=== PATIENT | male | born 1985 | race Caucasian/White ===

== ENCOUNTER 2018-11-11 09:30 | Outpatient (CLI) | payer OTHER, SELFPAY ==
--- NOTE | 2018-11-11 09:15 | DI.RAD_ITS ---
SYMPTOMS/DIAGNOSIS: LT FOOT PAIN, M79.672, PAIN LOCATED BASE OF 3RD TO 4TH TOES, ? OLD FX, DISLOCATION OR OTHER LEFT FOOT: There is no evidence of a fracture or dislocation. Degenerative changes are identified at the level of the first and second cuneiform metatarsal joints. Also incidental note is made of a small calcaneal spur and tiny area of spurring at the insertion of the Achilles aponeurosis on the calcaneus.
== END 2018-11-11 09:50 ==
PROVIDERS: PCP Nurse Practitioner Family; Visit Provider Nurse Practitioner Family
DX: M79.672 Pain in left foot (principal); M19.072 Primary osteoarthritis, left ankle and foot; M77.32 Calcaneal spur, left foot
CPT/HCPCS: 73630

== ENCOUNTER 2019-06-14 08:58 | Outpatient (CLI) | payer OTHER, SELFPAY ==
[2019-06-14 10:30] LABS: ALT 43 U/L (12-78); AST 25 U/L (15-37); Albumin 4.1 g/dL (3.4-5.0); Alkaline Phosphatase 78 U/L (46-116); Anion Gap 9.1 mmol/L (3-11); BUN 18 mg/dL (7-18); Bilirubin, Total 0.4 mg/dL (0.2-1.0); CO2 28.9 mmol/L (21.0-32.0); CREATININE 1.03 mg/dL (0.70-1.30); Calcium 9.4 mg/dL (8.5-10.1); Calculated LDL 152 mg/dL; Chloride 103 mmol/L (98-107); Cholesterol 221 mg/dL (50-200); Glucose 106 mg/dL (70-100); HDL Cholesterol 46 mg/dL (40-60); Sodium 141 mmol/L (136-145); Total Protein 7.4 g/dL (6.4-8.2); Triglyceride 118 mg/dL (30-150)
== END 2019-06-14 09:18 ==
PROVIDERS: PCP Nurse Practitioner Family; Visit Provider Nurse Practitioner Family
DX: Z13.220 Encounter for screening for lipoid disorders (principal); Z13.1 Encounter for screening for diabetes mellitus
CPT/HCPCS: 36415; 80053; 80061; 83721

== ENCOUNTER 2023-03-20 08:17 | Emergency (ER) | payer BC, SELFPAY ==
--- NOTE | 2023-03-20 08:26 | W.ED.GENAD ---
Discharge Plan Discharge Details Chief Complaint: FlankPain Clinical Impression: Hematuria, Ureterolithiasis Primary Care Provider: Cherise Giang ED Provider: Kirt Bell Home Meds and New Rx's Prescriptions: New tamsulosin 0.4 mg capsule 0.4 mg PO QHS Qty: 14 0RF Rx Instructions: Please take this every evening until you have passed your stone. ondansetron 4 mg tablet,disintegrating 4 mg PO BID 5 Days Qty: 10 0RF oxycodone 5 mg tablet 5 mg PO Q8H PRNQty: 3 0RF Discharge Instructions Instructions: Hematuria (ED) Additional Instructions: You were seen in the emergency department for your kidney stone which measures 6 mm. Your urine shows no sign of infection. Your kidney stone is located just below your right kidney. In 60% of patients this will pass in 1 to 2 weeks. If you develop fevers, worsening pain, or nausea and vomiting that does not stop please return to the emergency department. For your pain please take medications as follows: 1. Take acetaminophen (Tylenol), 1,000 mg (two 500 mg tabs) every 6 hours 2. Take ibuprofen (Advil), 400 mg every 6 hours. If you have additional pain after taking the above medications you are receiving several tablets of an opiate medication which you should take as directed. Please do not drive or drink alcohol after taking these tablets. You are also receiving a prescription for a medication which will help you pass your stone. Medical Decision Making This is an overall very well-appearing normothermic and not tachycardic 38 male with intermittent right flank pain and hematuria concerning for ureterolithiasis given recent hematuria and family history. No dysuria nor frequency to suggest UTI. No vascular risk factors nor pulsatile mass to suggest ruptured AAA. No midline back pain to suggest metastatic disease. No abdominal tenderness to suggest intra-abdominal infection. No right lower quadrant tenderness to suggest appendicitis. No pain out of proportion to suggest necrotizing soft tissue infection. No rash to right flank to suggest zoster. No perineal nor scrotal pain to suggest foreign years gangrene and patient does not have diabetes. Given no personal history of ureterolithiasis in the past we will obtain dry CT scan of the patient's abdomen pelvis to assess for stone and determine size and location. Will obtain urinalysis to assess for UTI and basic labs to assess renal function. I also considered acute cholecystitis however the patient had no right upper quadrant tenderness nor any fevers nor any diarrhea so I felt that this was less likely. I considered right lower lobe pneumonia however the patient has not had a fever nor cough. I considered PE however the patient is PERC negative so I did not send a D-dimer. Anticipate discharge. 9:40 AM CBC with no anemia or thrombocytopenia noted leukocytosis. Patient has a right-sided UPJ stone measuring 6 mm with mild hydro-. Will provide expulsive therapy with tamsulosin. No signs of UTI but urinalysis shows hematuria. We will touch base with urology for outpatient expectant management. Will ensure renal function is normal. 9:40 AM Patient metabolic panel with no JULIA and no acute electrolyte abnormalities. 9:58 AM I have prescribed the patient's oxycodone in addition to acetaminophen and ibuprofen for analgesia. I reviewed the [facility] record and the patient had no opiate prescriptions. 2-1/2 years ago he had a prescription for diazepam. Patient was provided with a strainer in the emergency department. I advised ED return if patient develops intractable pain, fevers, nausea or vomiting, or was not able to tolerate p.o. He understood his return indications and will proceed with an empiric trial of expectant outpatient management. 10:12 AM I spoke with Dr. Zaman from urology who agreed to see the patient in follow-up next week. Chronic conditions affecting the care of the patient: Elevated BMI History obtained from an outside historian: N/A External record review: N/A Medications: N/A Social determinants of health affecting disposition: N/A Management discussed with: Dr. Zaman from urology Treatment/interventions considered: N/A Response to therapies provided: N/A HPI General Date/Time Provider Initiated Documentation: 03/20/23 08:25. HPI Narrative: This is a 38-year-old male with a history of obesity arriving to the emergency department via private vehicle in the setting of flank pain. Patient, for the past 2 days, has intermittently had dark urine. He endorses pain below his right ribs that radiates to his back and groin. He says that yesterday his urine was pinkish. He went to [facility] in [place] and was diagnosed with hematuria and scheduled for an outpatient CTA to assess for ureterolithiasis. He has had more discomfort and has not yet had a CT. He has never had ureterolithiasis however his family history is significant for ureterolithiasis in his father and grandfather. He has had no dysuria no abdominal pain no nausea vomiting fevers nor chills. He has not taken any falls. 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 He has never had a PE nor DVT. He denies hormone use and calf pain. Related Data Home Medications Medication Instructions Recorded Confirmed ondansetron 4 mg disintegrating 4 mg PO BID 5 days #10 tabs 03/20/23 tablet oxycodone 5 mg tablet 5 mg PO Q8H PRN #3 tabs 03/20/23 tamsulosin 0.4 mg capsule 0.4 mg PO QHS #14 caps 03/20/23 Previous Rx's Medication Instructions Recorded ondansetron 4 mg disintegrating 4 mg PO BID 5 days #10 tabs 03/20/23 tablet oxycodone 5 mg tablet 5 mg PO Q8H PRN #3 tabs 03/20/23 tamsulosin 0.4 mg capsule 0.4 mg PO QHS #14 caps 03/20/23 Allergies Allergy/AdvReac Type Severity Reaction Status Date / Time No Known Allergies Allergy Verified 03/20/23 08:43 PFSH All Active Problems (Updated 03/20/23 @ 09:31 by Kirt Bell MD) Hematuria (Acute) Ureterolithiasis (Acute) Hyperlipidemia, unspecified (Acute) IFG (impaired fasting glucose) (Acute) Obesity (BMI 30-39.9) (Chronic) 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 Substance abuse Social History Smoking/Tobacco Use Status: Former Tobacco Use Quit Date: 01/22/19 Tobacco: How many years used: 12 Smokeless tobacco user: chewing tobacco (1.5yrs - quit date established. 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[employer]) Pets and animals: Yes Pets and animals: cat(s), dog(s) and farm animals Sexually active: Yes Do you think of yourself as: straight/heterosexual Current gender identity: male What is your relationship status?: How often do you talk on the phone with friends or family?: three or more times per week How often do you get together with friends or relatives?: once per week How often do you attend shinto or zoroastrianism services?: 4 or more times per year Do you belong to any clubs or organized social groups?: no Panel score (0-1 are the most socially isolated patients): 3 What type of physical activity do you participate in: walking and other Details: Hiking Duration: 30-45 minutes/day Frequency: 3-4 times per week Jennifer/Adventist: Scientology Special jennifer needs: No Seatbelt use: sometimes Helmet use: No Drive intox or ride w/intox tour driver: No Water heater temp set <120 deg: Yes Working smoke detector in home: Yes Fire extinguisher in home: Yes Carbon monox detector in home: Yes Firearms in home: Yes Firearms unloaded and locked: Yes Do you feel safe at home: Yes Do you feel safe in your relationship?: Yes Exam Narrative Exam Narrative: General: Well-appearing in no acute distress speaking in complete sentences. Head: Normocephalic, atraumatic. Eye: Pupils equal, round reactive to light. Extraocular eye movements intact. No conjunctival injection. No scleral icterus. Ear, nose, mouth, throat: Grossly normal inspection. Normal voice, handling secretions normally. Neck: Trachea midline. Cardiovascular: Well-perfused distal extremities. Regular rate and rhythm Respiratory: Nonlabored respiration. Clear lungs bilaterally Gastrointestinal: Nondistended abdomen. Soft nontender. No pulsatile masses. No rash to abdomen. No CVA tenderness. Musculoskeletal: No edema. Moving all 4 extremities spontaneously. Skin: Normal for age and race, grossly normal temperature and turgor. No acute rash. Neurologic: Alert and appropriate, no apparent acute deficits. Psychiatric: Mood and manner are appropriate. Grooming and personal hygiene are appropriate.
[2023-03-20 08:28] VITALS: BP 128/80; PULSE 85; RESP 20; TEMP 36.8; O2SAT 98
--- NOTE | 2023-03-20 08:45 | DI.CT_ITS ---
Exam(s) CT RENAL COLIC WO EXAM: CT RENAL COLIC WO CLINICAL HISTORY: Right-sided flank pain. TECHNIQUE: Imaging Protocol: Axial computed tomography images with coronal and sagittal reformatted images were created and reviewed. COMPARISON: No exams were available for comparison FINDINGS: ABDOMEN: Lung Bases: Normal where visualized. Liver: There is fatty infiltration of the liver. The liver measures 18.5 cm long. No measurable mas s. Gallbladder and biliary tract: No radiodense calculus or biliary ductal dilation. Pancreas: Normal density, no abnormal calcifications or inflammatory process. Spleen: Normal. Kidneys: Normal size, contour and axis.There is a 6 mm stone at the right UPJ causing mild hydronephr osis. Bilateral nephrolithiasis is seen. There is no evidence of left ureterolithiasis or hydroneph rosis. There is a 1.5 cm exophytic hypodense nodule the superior pole of the left kidney. It is christin ogeneous with the Hounsfield units of 10. No follow-up is recommended. Adrenal glands: No mass is seen. Lymph nodes: Within normal limits. Abdominal Aorta: Abdominal portion non-dilated. Mild atherosclerosis. PELVIS: Bladder:Symmetric distention, no gross wall thickening. Bowel: There is diverticulosis of the colon, but no evidence of acute diverticulitis. There is no ev idence of bowel obstruction or bowel wall thickening. There is no evidence of an acute appendicitis. Peritoneal cavity: No ascites, collection or mesenteric inflammatory response. No free air. Reproductive organs: Unremarkable as visualized. Bones: Within normal limits. There is L5 spondylolysis and grade 1 spondylolisthesis of L5 on S1. Soft Tissues: Within normal limits. IMPRESSION: 1. 6 mm right UPJ stone with very mild hydronephrosis. 2. Findings were discussed with Dr. Bell at 9:28 a.m. on 03/20/2023. RADIATION DOSE DELIVERED: 1,218.73mGy.cm Total DLP DATA REPOSITORY: All CT scans at this facility are submitted to the National Radiology Data Registry (NRDR) Dose Index Registry (DIR) with the [employer] (ACR). RADIATION OPTIMIZATION: All CT scans at this facility use at least one of these dose optimization te chniques: automated exposure control; mA and/or kV adjustment per patient size (includes targeted exa ms where dose is matched to clinical indication); or iterative reconstruction.
[2023-03-20 09:09] LABS: Bilirubin Negative (Negative); Blood Large (Negative); Clarity Clear (Clear); Glucose Negative (Negative); Ketones Negative (Negative); Leukocyte Esterase Negative (Negative); Nitrite Negative (Negative); Urobilinogen 0.2 mg/dL (Up to 0.2)
[2023-03-20 09:16] LABS: WBC 0-2 HPF (0-5)
[2023-03-20 09:17] LABS: Bacteria Negative HPF (Negative); C & S Indicated? No; Casts Negative LPF (Negative); Crystals Negative HPF (Negative); Epithelial Cells Negative HPF (Negative); Mucus Negative (Negative)
[2023-03-20 09:29] LABS: Absolute Basophil Count 0.05 10^3/uL (0.0-0.2); Absolute Eosinophil Count 0.08 10^3/uL (0.0-0.7); Absolute Lymphocyte Count 1.26 10^3/uL (1.2-3.4); Absolute Monocyte Count 0.47 10^3/uL (0.1-0.8); Absolute Neutrophil Count 2.67 10^3/uL (1.2-6.7); Basophils % 1.1; Eosinophils % 1.8; HGB 15.4 g/dL (13.5-17.5); Lymphocytes % 27.8; MCH 29.2 pg (27.0-33.0); MCHC 33.5 % (32.0-36.0); MCV 87 fL (80-95); MPV 9.8 fL (8.0-11.0); Monocytes % 10.4; Neutrophils % 58.9; Platelet Count 238 10^3/uL (130-400); RBC 5.28 10^6/uL (4.36-5.78); RDW 11.7 % (11.8-14.1); RDW-SD 37.7 fL; WBC 4.53 10^3/uL (4.4-10.8)
[2023-03-20 09:38] LABS: Anion Gap 3.8 mmol/L (3-11); BUN 13 mg/dL (7-18); CO2 30.2 mmol/L (21.0-32.0); Calcium 9.6 mg/dL (8.5-10.1); Chloride 104 mmol/L (98-107); Estimated GFR 98.18 (mL/min/1.73m2); Glucose 97 mg/dL (74-106); Potassium 4.6 mmol/L (3.5-5.1); Sodium 138 mmol/L (136-145)
--- NOTE | 2023-03-20 10:14 | NUR.NOTE ---
Nursing Note: Referral faxed to [facility] Urology for kidney stone, 6mm UPJ,in [address] Zaman about pt.
== END 2023-03-20 10:07 ==
PROVIDERS: Emergency Provider Emergency Medicine; PCP Nurse Practitioner Family
DX: N13.2 Hydronephrosis with renal and ureteral calculous obstruction (principal); D72.829 Elevated white blood cell count, unspecified
CPT/HCPCS: 36415; 80048; 99284; 74176; 81003; 81015; 85025

== ENCOUNTER 2023-04-14 15:41 | Outpatient (CLI) | payer BC, SELFPAY ==
--- NOTE | 2023-04-14 15:15 | DI.RAD_ITS ---
Exam(s) XR ABDOMEN FLAT PLATE EXAM: 2D digital imaging was performed. CLINICAL HISTORY: Ureterolithiasis, N20.1, monitor. COMPARISON: CT CT RENAL COLIC WO from 03/20/2023 TECHNIQUE: Supine views of the abdomen was performed. Two images were obtained. FINDINGS: LUNG BASES: Clear. BOWEL GAS PATTERN: Nondistended. FREE AIR: None. CALCIFICATIONS: There is a 4 mm linear calcification lateral to the right L2 transverse process. Its location suggests the right UPJ. It a appears to be in the same position compared to the CT scan of the abdomen and pelvis from 03/20/2023. No other urinary tract calculi are identified. The small kn own renal calcification are not visualized on this examination. OSSEOUS STRUCTURES: Normal for age. OTHER FINDINGS: None. IMPRESSION: 4 mm stone which appears unchanged in location and likely lies at the right UPJ. DATA REPOSITORY: RADIATION DOSE DELIVERED:
== END 2023-04-14 16:01 ==
LOC: DI 15:44
PROVIDERS: PCP Nurse Practitioner Family; Visit Provider Urology
DX: N20.1 Calculus of ureter (principal)
CPT/HCPCS: 74018

== ENCOUNTER 2023-04-24 08:54 | Day surgery (SDC) | payer BC, SELFPAY ==
[2023-04-24 09:09] VITALS: BP 125/75; PULSE 56; RESP 16; TEMP 36.5; O2SAT 99
--- NOTE | 2023-04-24 09:30 | DI.RAD_ITS ---
Exam(s) XR RETROGRADE IN OR EXAM: XR RETROGRADE IN OR CLINICAL HISTORY: Right Ureterolithiasis. TECHNIQUE: 2D digital imaging was performed. COMPARISON: No exams were available for comparison FINDINGS: Fluoroscopy was provided during right urologic procedure performed by the urologist. Please refer to procedure report for details. Radiation exposure index/cumulative dose: jayashree Kowalski= 4.01mGy IMPRESSION: As above. DATA REPOSITORY: RADIATION DOSE DELIVERED:
[2023-04-24] MEDS: Lactated Ringers 1,000 ML 80 ML IV (09:31)
--- NOTE | 2023-04-24 10:16 | W.PM.HP.N ---
Date of service: 04/24/23 Time of Service: 10:16 Assessment and Plan Assessment and plan (1) Calculus of proximal right ureter: Status: Acute Assessment and plan: His stone has not progressed with conservative management, so we will move forward with flexible ureteroscopy and holmium laser lithotripsy of the stone. History of Present Illness History of Present Illness Chief Complaint: Right ureteral stone Narrative: This is a 38-year-old gentleman who was previously seen in our clinic for vasectomy.? He comes in now after being in the emergency department about 3 weeks ago with a right ureteral stone. At the time of his presentation, he had gross hematuria and back pain.? He had no nausea or vomiting.? He had no fever or chills. He was evaluated with a noncontrast CT scan and a proximal right ureteral stone was identified.? He was treated conservatively. He has had intermittent episodes of back pain, right scrotal pain and hematuria.? His pain tends to be controlled with anti-inflammatory medications.? He continues to take tamsulosin. When he presented to the office recently, his followup KUB showed no progression of his stone Review of Systems Narrative: No fevers or chills No vision change or dysphasia No diabetes or thyroid No shortness of breath, cough or hemoptysis No chest pain or palpitations No nausea, vomiting, hepatitis, ulcers, jaundice, diarrhea or constipation No seizures, strokes or peripheral neuropathy No bleeding disorders or anemia No gout PFSH All Active Problems (Updated 04/24/23 @ 10:19 by Price Zaman MD) Calculus of proximal right ureter (Acute) Hyperlipidemia, unspecified (Acute) IFG (impaired fasting glucose) (Acute) Obesity (BMI 30-39.9) (Chronic) 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 Substance abuse Social History Smoking/Tobacco Use Status: Former Tobacco Use Quit Date: 01/22/19 Tobacco: How many years used: 12 Smokeless tobacco user: chewing tobacco (1.5yrs - quit date established. 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[employer]) Pets and animals: Yes Pets and animals: cat(s), dog(s) and farm animals Sexually active: Yes Do you think of yourself as: straight/heterosexual Current gender identity: male What is your relationship status?: How often do you talk on the phone with friends or family?: three or more times per week How often do you get together with friends or relatives?: once per week How often do you attend christian or taoism services?: 4 or more times per year Do you belong to any clubs or organized social groups?: no Panel score (0-1 are the most socially isolated patients): 3 What type of physical activity do you participate in: walking and other Details: Hiking Duration: 30-45 minutes/day Frequency: 3-4 times per week Jennifer/Christian: Caodaism Special jennifer needs: No Seatbelt use: sometimes Helmet use: No Drive intox or ride w/intox compactor driver: No Water heater temp set <120 deg: Yes Working smoke detector in home: Yes Fire extinguisher in home: Yes Carbon monox detector in home: Yes Firearms in home: Yes Firearms unloaded and locked: Yes Do you feel safe at home: Yes Do you feel safe in your relationship?: Yes Meds Allergies and Home Medications Allergies Allergy/AdvReac Type Severity Reaction Status Date / Time No Known Allergies Allergy Verified 04/24/23 09:08 Home Medications Medication Instructions Recorded Confirmed Type tamsulosin 0.4 mg capsule 0.4 mg PO QHS #14 caps 04/08/23 04/24/23 Rx Exam Const General: cooperative Neck Neck: supple Resp Effort & Inspection: normal respiratory effort Auscultation: clear to auscultation bilaterally Cardio Rate: regular rate Rhythm: regular rhythm GI Palpation: soft and no masses Neuro General: patient alert, patient awake and patient oriented x3 Results Last Vital Signs Temp 36.5 C 04/24/23 09:09 Pulse 56 L 04/24/23 09:09 Resp 16 04/24/23 09:09 BP 125/75 04/24/23 09:09 Pulse Ox 99 04/24/23 09:09 Time Spent Time spent with Patient: <40 minutes Time was spent: other
--- NOTE | 2023-04-24 11:02 | W.ANESPRE ---
General Info Date of Service Date Performed: 04/24/23 Height: 5 ft 9 in Weight: 110 kg Body Mass Index (BMI): 35.8 Surgical Procedure: Operation Date: 04/24/23 10:25 Proposed Procedure Side Surgeon p Cystoscopy/Laser/Retrograde/Ureteroscopy/Possible Stent Placement Right Price Zaman MD Meds Allergies and Home Medications Allergies Allergy/AdvReac Type Severity Reaction Status Date / Time No Known Allergies Allergy Verified 04/24/23 09:08 Home Medication Medication Instructions Recorded tamsulosin 0.4 mg capsule 0.4 mg PO QHS #14 caps 04/08/23 Current Visit Medications: Current Medications Generic Name Dose Route Start Last Admin Trade Name Freq PRN Reason Stop Dose Admin Ringer's Solution 1,000 mls @ 80 mls/hr 04/24/23 06:00 04/24/23 09:31 IV 05/23/23 23:59 80 mls/hr INFUSION JIMMIE Administration Cefazolin Sodium/Dextrose 2 gm in 50 mls @ 100 mls/hr 04/24/23 06:00 Ancef Duplex IVPB 05/23/23 23:59 PREOP JIMMIE IV Miscellaneous Supplies 1 each 04/24/23 06:00 Iv Access IV 05/23/23 23:59 DIRECTED JIMMIE Sodium Chloride 0 ml 04/24/23 06:00 Normal Saline Flush 10 Ml Syr IV 05/23/23 23:59 PRN PRN Sodium Chloride 0 ml 04/24/23 06:00 Normal Saline 10 Ml Vial IJ 05/23/23 23:59 DIRECTED PRN Sterile Water 0 ml 04/24/23 06:00 Water,Injection,Sterile 10 Ml Vial IJ 05/23/23 23:59 DIRECTED PRN PFSH Active Problems Active Problems: Problem Status Onset Code Calculus of proximal right ureter N20.1 Hyperlipidemia, unspecified E78.5 IFG (impaired fasting glucose) R73.01 Obesity (BMI 30-39.9) E66.9 Neuroma of third interspace of left foot G57.62 Sleep apnea, unspecified G47.30 Vitamin D deficiency 12/17/16 E55.9 Medical History Medical History (Updated 04/24/23 @ 10:19 by Price Zaman MD) Tobacco use disorder Chewing tobacco; QUIT 01/2019 Surgical History Surgical History Status post appendectomy (~1999) Tonsillectomy and adenoidectomy Age 10 Tobacco Smoking/Tobacco Use Status: Former Tobacco Use Smokeless tobacco user: chewing tobacco (1.5yrs - quit date established. 07/14/20 EO ) Passive smoking exposure: No Second hand exposure: No Alcohol Alcohol Intake: current Alcohol intake frequency: a few times a week Substance Use Substance use: Never Substance use type: does not use Vital Signs and Lab Results Vital Signs Most Recent Vital Signs in EMR: Most Recent Vital Signs Temp Pulse Resp BP Pulse Ox 36.5 C 56 L 16 125/75 99 04/24/23 09:09 04/24/23 09:09 04/24/23 09:09 04/24/23 09:09 04/24/23 09:09 Lab Results Blood Type / Crossmatch: No Data to Display Complete Blood Count: No Data to Display Complete Metabolic Panel: No Data to Display Liver Function Panel: No Data to Display Coagulation Panel: No Data to Display Cardiac Panel: No Data to Display Arterial Blood Gas: No Data to Display Venous Blood Gas: No Data to Display Pancreas Panel: No Data to Display Thyroid Panel: No Data to Display Infectious Disease: No Data to Display Blood Cultures: No Data to Display Toxicology Panel: No Data to Display Anesthesia Assessment and Plan Anesthesia History Personal History: No History of Anesthesia Complications Family History: No Family History of Anesthesia Complications Exercise Tolerance Exercise Tolerance: Metabolic Equivalents>4 Pertinent Negatives Pertinent Negatives: No Symptoms of GERD Cardiac & Pulmonary Exam Cardiac Exam: Normal S1/S2 Heart Sounds Pulmonary Exam: Clear Bilateral Breath Sounds Implantable Cardiac Device Does patient have a Pacemaker or an ICD?: No Airway Exam Known Difficult Airway: No Mallampati Class: 2 Mouth Opening: Normal (> 3cm) Thyromental Distance: Greater than 3 cm Neck Range of Motion: Full ROM Neck Circumference: Normal Teeth Condition: Normal Dentition ASA Classification ASA Score: ASA 2 Emergency Case?: No NPO Status NPO Status: NPO Clears >2 hours, Solids >8 hours Anesthesia Plan Resuscitation Status: Full Code Anesthesia Technique: General Anesthesia Airway Planned: Endotracheal Tube Monitors Used: Standard Monitors
[2023-04-24 11:03] VITALS: BMI 35.8
[2023-04-24] MEDS: ceFAZolin 2 GM/50 ML BAG IVPB (11:15)
[2023-04-24] MEDS: Lidocaine 2% Jelly 6 ML SYR (11:33)
[2023-04-24] MEDS: Omnipaque 300 MG/ML 50 ML BTL (11:40)
--- NOTE | 2023-04-24 12:02 | W.PM.DSUDISC ---
Date of service: 04/24/23 Time of Service: 12:03 Discharge Plan Disposition Patient Disposition: Home Condition: Stable Discharge Details Reason For Visit: ureteroscopy Attending Provider: Price Zaman Primary Care Provider: Cherise Giang Home Meds and New Rx's Prescriptions: New tramadol 50 mg tablet 50 mg PO Q8H MDD 3 PRNQty: 12 0RF No Action tamsulosin 0.4 mg capsule 0.4 mg PO QHS Qty: 14 0RF Rx Instructions: Please take this every evening until you have passed your stone. Discharge Instructions Additional Instructions: no need to strain urine may use tylenol and NSAIDs for pain - use tramadol for breakthrough pain followup @ 6 weeks with renal US Activity:: Activity as Tolerated Shower/Bathe:: 24 hours Diet:: As Tolerated Discharge Orders Discharge Orders: Discharge Order (Routine); Ordered 04/24/23 Ordered By: Price Zaman DS: Diagnosis Discharge Diagnosis (1) Calculus of proximal right ureter: Status: Acute
--- NOTE | 2023-04-24 12:09 | W.PM.OP ---
Date of service: 04/24/23 Time of Service: 12:10 Operative Note Operative Note DATE OF PROCEDURE: 04/24/23 PRE-OP DIAGNOSIS: Right ureteral stone POST-OP DIAGNOSIS: same PROCEDURE: Cystoscopy, right retrograde pyelogram, right flexible ureteroscopy with holmium laser lithotripsy of stone, extraction of stone fragments SURGEON: Price Zaman ANESTHESIA TYPE: General LMA/ETT Refer to Anesthesia Record ESTIMATED BLOOD LOSS: 10 PATHOLOGY: other (Stones for chemical analysis) COMPLICATIONS: None Patient was transported to: PACU Patient's condition: stable Indications: This is a 38-year-old gentleman who presented to the emergency department with right flank and testicular pain. He was found to have a right proximal ureteral stone. He was treated conservatively but his stone did not progress. He presents now for stone manipulation Findings: Right proximal ureteral stone bumped back into right upper pole calyx Procedure Description: The patient was given preoperative IV antibiotics and brought to the operating room on 04/24/2023. After successful induction of general anesthesia, he was placed in the dorsal lithotomy position. His genitalia was prepped and draped sterilely. 2% Xylocaine jelly was instilled into the urethra to act as a local anesthetic. A 22 [place] rigid cystoscope was passed through the urethra into the bladder. The urethra and bladder were inspected with a 30 degree lens. The pendulous, bulbar and membranous urethra's appeared normal with no strictures. The prostatic urethra showed no significant lateral lobe enlargement or median lobe enlargement. The bladder neck was entered and the bladder mucosa was inspected. No stone was seen within the lumen of the bladder. Both ureteral orifices appeared normal with no blood coming from either side. The right ureteral orifice was cannulated with a 5 [place] access catheter and a retrograde pyelogram was obtained by injecting Omnipaque through the access catheter under fluoroscopic guidance. A filling defect was identified in the right proximal ureter. We then passed a guidewire up through the lumen of the access catheter and removed the catheter. We positioned the dual-lumen catheter and placed a second guidewire. We chose one of the wires as a working wire and the second as a safety wire. A ureteral access sheath was then advanced over the working wire leaving the safety wire in place. The flexible ureteroscope was advanced through the lumen of the access sheath. The ureter was inspected. No stones were seen along the course of the ureter, but the previously identified stone was seen in one of the upper pole calyces along with the tip of the guidewire. The stone was then treated with a holmium laser fiber. We chose a 272 ?m fiber and used a power setting of 0.5 and a rate of 20. The stone fragmented quite nicely and I was then able to grasp stone fragments using a 0 tip stone basket. The stone fragments were removed and sent to pathology for chemical analysis. The scope was reintroduced and no additional large stone burden was seen. We elected not to place a ureteral stent at this time. The scope was removed. He tolerated this procedure with no complications.
[2023-04-24 12:17] VITALS: BP 126/79; PULSE 74; RESP 12; TEMP 36.5; O2SAT 100
[2023-04-24 12:22] VITALS: BP 119/84; PULSE 66; RESP 13; TEMP 36.5; O2SAT 100
--- NOTE | 2023-04-24 12:26 | W.ANESPOSTOP ---
Postoperative Evaluation Date, Time and Location Date Performed: 04/24/23 Time Performed: 12:26 Patient Location: PACU Vital Signs Most Recent Imported Vital Signs: Most Recent Vital Signs Temp Pulse Resp BP Pulse Ox 36.5 C 56 L 16 125/75 99 04/24/23 09:09 04/24/23 09:09 04/24/23 09:09 04/24/23 09:09 04/24/23 09:09 Pain Score Most Recent Pain Score: Most Recent Pain Score Pain Level 0 04/24/23 09:09 Assessment Mental Status: Awake (Alert & Oriented to Patient Baseline) Airway and Respiratory Function: Patent airway with normal (patient baseline) respiratory exam Cardiovascular Function: Hemodynamically Stable Hydration Status: Adequately Hydrated Nausea & Vomiting: No Nausea or Vomiting Pain: Pt. Denies Any Pain Peripheral Nerve Block: Patient did not receive a nerve block
[2023-04-24 12:27] VITALS: BP 121/84; PULSE 63; RESP 13; TEMP 36.5; O2SAT 100
[2023-04-24 12:45] VITALS: BP 124/89; PULSE 53; RESP 16; TEMP 36.4; O2SAT 96
[2023-04-24 13:15] VITALS: BP 130/95; PULSE 56; RESP 18; TEMP 36.5; O2SAT 97
--- NOTE | 2023-04-24 14:51 | W.ANESPOSTOP ---
Postoperative Evaluation Date, Time and Location Date Performed: 04/24/23 Time Performed: 14:51 Patient Location: PACU Vital Signs Most Recent Imported Vital Signs: Most Recent Vital Signs Temp Pulse Resp BP Pulse Ox 36.5 C 56 L 18 130/95 H 97 04/24/23 13:15 04/24/23 13:15 04/24/23 13:15 04/24/23 13:15 04/24/23 13:15 Most Recent Vital Signs Temp Pulse Resp BP Pulse Ox 36.5 C 56 L 16 125/75 99 04/24/23 09:09 04/24/23 09:09 04/24/23 09:09 04/24/23 09:09 04/24/23 09:09 Pain Score Most Recent Pain Score: Most Recent Pain Score Pain Level 2 04/24/23 13:15 Assessment Mental Status: Awake (Alert & Oriented to Patient Baseline) Airway and Respiratory Function: Patent airway with normal (patient baseline) respiratory exam Cardiovascular Function: Hemodynamically Stable Hydration Status: Adequately Hydrated Nausea & Vomiting: No Nausea or Vomiting Pain: Pt. Denies Any Pain Peripheral Nerve Block: Patient did not receive a nerve block
[2023-04-30 10:49] LABS: Source: Right Ureter
== END 2023-04-24 13:25 | disposition home or self-care (01) ==
PROVIDERS: PCP Nurse Practitioner Family; Visit Provider Urology
PROC: (CPT 52353; principal; 2023-04-24 10:15)
DX: N20.1 Calculus of ureter (principal); E55.9 Vitamin D deficiency, unspecified; E66.9 Obesity, unspecified; E78.5 Hyperlipidemia, unspecified
CPT/HCPCS: 52353; 74420; 82365; J0690; J1100; J1885; J2250; J2405; J2704; J3010; Q9967

== ENCOUNTER 2024-10-26 15:26 | Outpatient (CLI) | payer OTHER, SELFPAY ==
[2024-10-26 15:09] LABS: Hemoglobin A1C 5.6 % (<5.7)
[2024-10-26 15:26] LABS: Glucose 80 mg/dL (74-106)
[2024-10-26 15:31] LABS: Calculated LDL 135 mg/dL (<100); Cholesterol 200 mg/dL (<200); HDL Cholesterol 51 mg/dL (40-60); Triglyceride 72 mg/dL (<150)
== END 2024-10-26 15:27 | disposition home or self-care (01) ==
LOC: LBO 15:33
PROVIDERS: PCP Nurse Practitioner Family; Visit Provider Nurse Practitioner Family
DX: Z00.00 Encounter for general adult medical examination without abnormal findings (principal); R73.01 Impaired fasting glucose; E66.9 Obesity, unspecified
CPT/HCPCS: 36415; 80061; 82947; 83036

== ENCOUNTER 2025-10-27 01:32 | Outpatient (CLI) | payer OTHER, SELFPAY ==
[2025-10-27 08:28] LABS: Glucose 103 mg/dL (74-106)
[2025-10-27 08:34] LABS: Cholesterol 191 mg/dL (<200); HDL Cholesterol 40 mg/dL (>40)
== END 2025-10-27 01:33 | disposition home or self-care (01) ==
PROVIDERS: PCP Nurse Practitioner Family; Referring Provider Nurse Practitioner Family; Visit Provider Nurse Practitioner Adult Health
DX: Z00.00 Encounter for general adult medical examination without abnormal findings (principal); R73.01 Impaired fasting glucose
CPT/HCPCS: 36415; 80061; 82947